=== PATIENT | female | born 1995 | race Caucasian/White ===

== ENCOUNTER → 2016-08-27 | Outpatient (CLI) | payer OTHER ==
[2016-08-27 14:39] LABS: URINE APPEARANCE CLEAR (CLEAR); URINE BILIRUBIN NEG (NEG); URINE COLOR YELLOW; URINE NITRITE NEG (NEG); URINE SPECIFIC GRAVITY 1.012 (1.000-1.030); UROBILINOGEN NEG (NEG)
[2016-08-27 14:50] LABS: MANUAL MICROSCOPIC REQUIRED? NO; REVIEW REQ? NO
[2016-08-29 23:02] LABS: CHLAMYDIA TRACH RNA*** NOT DETECTED (NOT DETECTED); GC (NEIS GONORRHOEAE)RNA** NOT DETECTED (NOT DETECTED)
== END | disposition home or self-care (01) ==
LOC: C.LABSPEC 13:42
PROVIDERS: ATTEND Obstetrics & Gynecology
DX: Z34.00 Encounter for supervision of normal first pregnancy, unspecified trimester (principal)

== ENCOUNTER → 2016-08-27 | Outpatient (CLI) | payer OTHER ==
[2016-08-27 10:15] LABS: BASO % 0.1 %; BASO ABS # 0.01 K/uL (0-0.2); COMPLETE YES; HEMATOCRIT 37.9 % (37-47); IG% 0.3 %; LYMPH % 25.6 %; LYMPH ABS # 1.72 K/uL (1.2-3.4); MEAN CELL VOLUME 78.6 fL (80-100); MEAN CORPUSCULAR HEMOGLOBIN 27.6 pg (25-34); MEAN CORPUSCULAR HGB CONC 35.1 g/dl (32-36); MEAN PLATELET VOLUME 11.6 fL (7.4-10.4); MONO % 6.7 %; NEUT % 66.3 %; PLATELET COUNT 148 K/uL (130-400); RED BLOOD COUNT 4.82 M/uL (4.2-5.4); WHITE BLOOD COUNT 6.72 K/uL (4.8-10.8)
== END | disposition home or self-care (01) ==
LOC: C.LAB1850 09:09
PROVIDERS: ATTEND Obstetrics & Gynecology
DX: Z34.00 Encounter for supervision of normal first pregnancy, unspecified trimester (principal)

== ENCOUNTER → 2016-10-15 | Outpatient (CLI) | payer OTHER ==
[2016-10-15 12:38] LABS: GTGD 50 Grams
[2016-10-17 15:32] LABS: AFP CONCENTRATION 24.9 NG/ML; AFP MULTIPLE OF MEDIAN 0.71; AFPTS GESTATIONAL AGE 16.3 WEEKS; AFPTS INSULIN DEP DIABETIC? NO; AFPTS MATERNAL WT 142 LBS; ALPHA-FETOPROTEIN RACE CAUCASIAN=W; EDD DETERMINED BY ULTRASOUND; HISTORY OF NTD NO; REPEAT SAMPLE? NO
== END | disposition home or self-care (01) ==
LOC: C.LAB1850 09:14
PROVIDERS: ATTEND Obstetrics & Gynecology
DX: Z34.00 Encounter for supervision of normal first pregnancy, unspecified trimester (principal)

== ENCOUNTER → 2017-01-07 | Outpatient (CLI) | payer OTHER ==
[2017-01-07 11:37] LABS: URINE APPEARANCE CLEAR (CLEAR); URINE BILIRUBIN NEG (NEG); URINE COLOR YELLOW; URINE EPITHELIAL CELL AUTO 20-30 /lpf (0-5); URINE NITRITE NEG (NEG); URINE SPECIFIC GRAVITY 1.009 (1.000-1.030); UROBILINOGEN NEG (NEG)
[2017-01-07 11:49] LABS: MANUAL MICROSCOPIC REQUIRED? NO; REVIEW REQ? NO
[2017-01-07 12:07] LABS: HEMATOCRIT 34.2 % (37-47)
[2017-01-07 12:53] LABS: GTGD 50 Grams
== END | disposition home or self-care (01) ==
LOC: C.LAB1850 09:49
PROVIDERS: ATTEND Obstetrics & Gynecology
DX: Z34.03 Encounter for supervision of normal first pregnancy, third trimester (principal)

== ENCOUNTER → 2017-03-04 | Outpatient (CLI) | payer OTHER | END | disposition home or self-care (01) | LOC: C.LABSPEC 15:56 | PROVIDERS: ATTEND Obstetrics & Gynecology | DX: Z34.03 Encounter for supervision of normal first pregnancy, third trimester (principal); Z3A.00 Weeks of gestation of pregnancy not specified ==

== ENCOUNTER 2017-03-12 00:11 | Inpatient (IN) | payer OTHER ==
[~2017-03-12] VITALS: Ht 170.2 cm; Wt 82.0 kg
[2017-03-12] MEDS ORDERED: LACTATED RINGER'S 1000ML 1,000 ML IV PRN (01:33)
[2017-03-12] MEDS ORDERED: LACTATED RINGER'S 1000ML 1,000 ML IV SCH ×2 (01:33→07:24)
[2017-03-12] MEDS ORDERED: FENTANYL CITRATE INJ 50 MCG/1 ML 2 ML VIAL ONE (02:15)
[2017-03-12] MEDS ORDERED: BUPIVACAINE 0.25% 30 ML VIAL ONE (02:15)
[2017-03-12] MEDS ORDERED: FENTANYL 2MCG/ML ROPIV 1.25MG/ML 100ML BAG EPI ONE (02:15)
[2017-03-12] MEDS ORDERED: EpHEDrine SULFATE INJ 50 MG/ML AMP ONE (02:15)
[2017-03-12 02:22] LABS: ALT/SGPT 16 U/L (12-78); AST/SGOT 12 U/L (15-37); BLOOD UREA NITROGEN 9 mg/dl (7-18); BUN/CREATININE RATIO 13.8 (10-20); CALCIUM 8.7 mg/dl (8.5-10.1); CARBON DIOXIDE 22 mmol/L (21-32); CHLORIDE 109 mmol/L (98-107); CREATININE 0.64 mg/dl (0.60-1.20); GLUCOSE 81 mg/dl (70-99); POTASSIUM 3.8 mmol/L (3.5-5.1); SODIUM 140 mmol/L (136-145)
[2017-03-12 02:23] LABS: HEMATOCRIT 35.5 % (37-47); MEAN CELL VOLUME 82.4 fL (80-100); MEAN CORPUSCULAR HEMOGLOBIN 28.1 pg (25-34); MEAN CORPUSCULAR HGB CONC 34.1 g/dl (32-36); PLATELET COUNT 115 K/uL (130-400); PLT ESTIMATE NORMAL; RED BLOOD COUNT 4.31 M/uL (4.2-5.4); WHITE BLOOD COUNT 12.15 K/uL (4.8-10.8)
[2017-03-12 02:25] LABS: ALB/GLOB RATIO 0.8 (0.9-2); ALKALINE PHOSPHATASE 186 U/L (45-117)
[2017-03-12] MEDS ORDERED: LACTATED RINGER'S 1000ML 500 ML IV PRN (03:18)
[2017-03-12] MEDS ORDERED: NALOXONE HCL INJ 1 MG in SODIUM CHLORIDE 0.9% 1000ML 1,000 ML IV PRN (03:18)
[2017-03-12] MEDS ORDERED: EpHEDrine SULFATE INJ 50 MG/ML AMP IV PRN (03:30)
[2017-03-12] MEDS ORDERED: PROMETHAZINE HCL INJ 6.25 MG in SODIUM CHLORIDE 0.9% 50ML 50 ML IV PRN (03:30)
[2017-03-12] MEDS ORDERED: NALBUPHINE HCL INJ 10 MG/ML AMP IV PRN (03:30)
[2017-03-12] MEDS ORDERED: NALOXONE HCL INJ 0.4 MG/1 ML VIAL/CARP IV PRN (03:30)
[2017-03-12] MEDS ORDERED: FENTANYL 2MCG/ML ROPIV 1.25MG/ML 100ML BAG EPI PRN (03:30)
[2017-03-12] MEDS ORDERED: ONDANSETRON INJ 2 MG/ML 2 ML VIAL IV PRN (03:30)
[2017-03-12] MEDS ORDERED: DiphenhydrAMINE HCL 50 MG/ML VIAL IV PRN (03:30)
[2017-03-12 03:54] VITALS: Ht 170.2 cm; Wt 82.0 kg
[2017-03-12] MEDS ORDERED: OXYTOCIN 30 UNITS/500ML NSS IV ONE (06:46)
[2017-03-12] MEDS ORDERED: SUPERCREAM 0.870 % 15GM JAR EXT PRN (07:30)
[2017-03-12] MEDS ORDERED: ACETAMINOPHEN 325 MG TAB PO PRN (07:30)
[2017-03-12] MEDS ORDERED: DIPHTHERIA/TETANUS/PERTUSSIS 0.5 ML SYR/VIAL IM. ONE (07:30)
[2017-03-12] MEDS ORDERED: OXYTOCIN 30 UNITS/500ML NSS IV PRN (07:30)
[2017-03-12] MEDS ORDERED: LANOLIN OINT EXT PRN ×2 (07:30)
[2017-03-12] MEDS ORDERED: HYDROCORTISONE ACETATE 25 MG SUPP PR PRN (07:30)
[2017-03-12] MEDS ORDERED: BENZOCAINE 20% AER SPR 82.5 GM CAN EXT PRN (07:30)
[2017-03-12] MEDS ORDERED: OXYCODONE/ACETAMINOPHEN 5-325 TAB PO PRN (07:30)
--- NOTE | 2017-03-12 07:35 | Anesthesia Procedure Note ---
Anesthesia Epidural Removal Nt Date & Time Mar 12, 2017 at 07:34 Vital Signs Pain Intensity: 1 Notes Mental Status: alert / awake / arousable, participated in evaluation Nausea / Vomiting: adequately controlled Pain: adequately controlled Airway Patency, RR, SpO2: stable & adequate BP & HR: stable & adequate Hydration State: stable & adequate Neuraxial Anesthesia: was administered Anesthetic Complications: no major complications apparent, pt satisfied with anesthetic care Epidural: removed without complications, with tip intact
--- NOTE | 2017-03-12 07:42 | DELIVERY SUMMARY ---
DATE OF OPERATION: 03/12/2017 PREOPERATIVE DIAGNOSES: 1. Murguia intrauterine at 37+ weeks. 2. Onset of labor. 3. Group B strep negative. POSTOPERATIVE DIAGNOSES: Same. PROCEDURE: Spontaneous vaginal delivery. SURGEON: Tianna Bess MD DUKEY RIDER: None. ESTIMATED BLOOD LOSS: 250. COMPLICATIONS: None. DISPOSITION: Stable in labor and delivery. DESCRIPTION OF PROCEDURE: Nellie is a 21-year-old who presented in active labor. She was provided with an epidural for pain management. She reached complete dilation with an urge to push and was coached to her second stage of labor. She pushed well and delivered the head of her in the occiput anterior position with a left nuchal arm, so the posterior shoulder and left arm delivered next and then the infant was slightly rotated and the anterior/right arm then delivered followed by the remainder of the with no difficulty whatsoever. The infant was placed on the maternal abdomen. Cord was doubly clamped and cut by the father of the baby. The was vigorous immediately after delivery. Cord blood was collected and the placenta was delivered and noted to be intact with a 3-vessel cord. The cervix, vagina and perineum were examined and found to be free of any lacerations or abrasions. The patient is currently in stable condition with the firm fundus and she and the are both doing well. I attest to the content of the Intraoperative Record and any orders documented therein. Any exception s are noted below.
[2017-03-12] MEDS: DOCUSATE SODIUM 100 MG CAP PO SCH ×2 (13:35→20:04)
[2017-03-12] MEDS: PRENATAL VITAMIN TAB PO SCH (13:35)
[2017-03-12 13:45] VITALS: BP 144/91; PULSE 86; TEMP 36.7; O2SAT 99
[2017-03-12 15:30] VITALS: BP 134/85; PULSE 90; TEMP 36.8
[2017-03-12] MEDS: IBUPROFEN 600 MG TAB PO PRN ×2 (18:42→23:05)
[2017-03-12 19:00] VITALS: BP 134/80; PULSE 85; TEMP 36.8
[2017-03-12 23:45] VITALS: BP 144/95; PULSE 90; TEMP 36.8
[2017-03-13 03:15] VITALS: BP 122/80; PULSE 87; TEMP 36.8
[2017-03-13 07:28] LABS: HEMATOCRIT 36.1 % (37-47)
--- NOTE | 2017-03-13 07:53 | Progress Note ---
Subjective Mar 13, 2017. Subjective conversation w/ patient Ambulation: ambulating normally Voiding: no voiding problems Passing Gas: Yes (pt thinks so) Diet Tolerance: Regular Diet Lochia: Small Feeding Type: Breast Feeding Pain: Notes some mild low cramping Comment: Found pt initially standing and caring for baby in crib. Denies any acute concerns. Review of Systems Constitutional: No fever, No chills Respiratory: No cough, No shortness of breath Cardiac: No chest pain, No edema Abdomen: No nausea, No vomiting, No diarrhea Female : No dysuria Objective Vital Signs Date Time Temp Pulse Resp B/P (MAP) Pulse Ox O2 Delivery O2 Flow Rate FiO2 03/13/17 03:15 36.8 87 20 122/80 (94) Room Air 03/12/17 23:45 Room Air 03/12/17 23:45 36.8 90 18 144/95 (111) Room Air 03/12/17 19:00 36.8 85 20 134/80 (98) Room Air 03/12/17 15:30 Room Air 03/12/17 15:30 36.8 90 20 134/85 (101) Room Air 03/12/17 13:45 36.7 86 18 144/91 (108) 99 Room Air Physical Exam General Appearance: WELL-APPEARING, WD/WN, NO APPARENT DISTRESS Respiratory/Chest: lungs clear, normal breath sounds, no respiratory distress Cardiovascular: regular rate, rhythm, no edema, no murmur Abdomen: normal bowel sounds, non tender, soft Fundus: Firm, Tender (minimal, appropriate), Relation to Umbilicus (at umbilicus) Extremities: normal range of motion, no pedal edema, no calf tenderness Laboratory Results Last 24 Hours Test 03/13/17 06:35 Hemoglobin 11.9 g/dL Hematocrit 36.1 % Assessment and Plan Post- Day#: 1 Continue Routine Care: 21F s/p , now PPD #1. - Blood type B positive. GBS negative. Rubella immune. - Vital signs reviewed and stable. - Pain controlled with motrin. - No leg swelling or tenderness on calf palpation. Encourage ambulation. - Encourage breast feeding. - Hemoglobin pre-delivery 12.1, post-delivery 11.9. Bleeding has improved. Continue to monitor clinically. - Continue routine post-vaginal delivery care. - Pt agreed with above plan, all current questions answered. Inocencio Méndez MD, PGY1 Experimental Mechanic Spacecraft Physician Supervision Note: I interviewed and examined the patient. Discussed with Dr. Méndez and agree with findings and plan as documented in the note. Any exceptions or clarifications are listed here: Doing well. routine care. Documented By: Mary Tinajero Resident Tracking Resident Involvement: Resident Care Provided Care Provided: OB Delivery (OB rounds)
[2017-03-13 08:20] VITALS: BP 139/86; PULSE 99; TEMP 36.8; O2SAT 99
[2017-03-13] MEDS: PRENATAL VITAMIN TAB PO SCH (08:46)
[2017-03-13] MEDS: IBUPROFEN 600 MG TAB PO PRN ×2 (08:46→15:45)
[2017-03-13] MEDS: DOCUSATE SODIUM 100 MG CAP PO SCH ×2 (08:46→20:18)
[2017-03-13 15:30] VITALS: BP 140/90; PULSE 89; TEMP 36.6
[2017-03-13 23:50] VITALS: BP 125/76; PULSE 80; TEMP 36.7; O2SAT 98
[2017-03-14] MEDS: IBUPROFEN 600 MG TAB PO PRN ×3 (01:40→15:45)
--- NOTE | 2017-03-14 06:42 | Progress Note ---
Subjective Mar 14, 2017. Subjective conversation w/ patient, physical exam Ambulation: ambulating normally Voiding: no voiding problems Diet Tolerance: Regular Diet Lochia: Small Feeding Type: Breast Feeding Comment: c/o of burning externally with urination. no urgency or frequency. using dermaplast spray Review of Systems Constitutional: No fever, No chills, No sweats, No weight loss, No weakness, No fatigue, No problem reported Abdomen: No pain, No nausea, No vomiting, No diarrhea, No constipation, No GI bleeding, No problem reported Female : + see HPI Objective Vital Signs Date Time Temp Pulse Resp B/P (MAP) Pulse Ox O2 Delivery O2 Flow Rate FiO2 03/13/17 23:50 98 Room Air 03/13/17 23:50 36.7 80 20 125/76 (92) 98 Room Air 03/13/17 15:30 Room Air 03/13/17 15:30 36.6 89 20 140/90 (107) Room Air 03/13/17 08:20 36.8 99 16 139/86 (103) 99 Room Air 03/13/17 08:20 Room Air Physical Exam General Appearance: WELL-APPEARING, NO APPARENT DISTRESS Abdomen: non tender, soft Fundus: Firm, Non-Tender, Relation to Umbilicus (2 below U) Assessment and Plan Problem List Medical Problems: (1) Contusion of pelvis Status: Acute (2) Hand, foot and mouth disease Status: Acute (3) Herpes simplex labialis Status: Acute (4) Sore throat Status: Acute (5) Viral pharyngitis Status: Acute Post- Day#: 2 Continue Routine Care: stable progress discharge to home follow up in 6 weeks.
--- NOTE | 2017-03-14 07:00 | Discharge Instructions ---
Discharge Instructions Date of Service Mar 14, 2017. Admission Reason for Admission: LABOR Discharge Discharge Diagnosis / Problem: recovery from normal delivery Discharge Goals Goal(s): Routine recovery after delivery Medications Continue Dispensed Medications: supercream, dermaplast, tucks, lansinoh Activity Recommendations Activity Limitations: per Instructions/Follow-up section . Instructions / Follow-Up Instructions / Follow-Up ACTIVITY RECOMMENDATIONS: * Gradual return to full activity over the next 2-3 weeks. * No lifting - nothing heavier than baby over the next 2-3 weeks. * Do not engage in vigorous exercise, sexual activity or sports until cleared by your physician. * Do not drive or operate any motorized equipment until cleared by your physician. * You may shower/bathe daily. MEDICATIONS: For discomfort or pain, you may use Acetaminophen (Tylenol), Ibuprofen (Advil), or Naproxen (Aleve) following the package directions. For constipation you may use Colace following the package directions. BREAST CARE: If you are not breast feeding: * Wear a supportive bra 24 hours a day for one to two weeks. * Avoid stimulating your breasts and nipples as much as possible during the first few weeks after delivery. * When taking a shower, have the warm water hit your back, not breasts. * When your breasts feel full, apply ice packs. Usually three to four times a day helps ease the discomfort. * Take a mild pain medication (Tylenol / Motrin) when you are uncomfortable. If breast feeding: * Use breast milk to lubricate nipples. Lansinoh cream may be used for sore nipples. You do not need to remove cream prior to breast feeding. If using a different brand of cream, check the label for directions regarding removal of cream prior to nursing. * Wear a supportive bra. * If having problems with breasts or breast feeding, call a executive talent acquisition consultant or your health care provider. EPISIOTOMY CARE: After delivery, if you have an episiotomy (stitches), the following steps will ease discomfort and aid healing. * For the first 24 hours after delivery, place ice packs next to your episiotomy to help reduce swelling. * After the first 24 hour-period, sitz baths, either portable or in the tub, are suggested. A shower with a shower arm sprayed over the episiotomy may be comforting. * [place] care should be done after each voiding and bowel movement. Squirt warm water from a plastic bottle over the perineum (region of the body between the anus and urinary opening) and pat dry. * Use Dermoplast to ease discomfort. Shake container. [place] directly over the episiotomy. Place a Tucks on a clean sanitary pad next to your episiotomy. SPECIAL CARE INSTRUCTIONS: When you are discharged from the hospital, it is important for you to follow the instructions listed below: * During the first week at home, you should be able to care for yourself and your baby. In addition, the usual light household activities are encouraged. * Limit your activities to the way you feel. Do not try to clean the house or move furniture. Be sensible. * If you actively engage in sports and have done so up until the time of your delivery, you may resume these activities as soon as you feel able. This may take up to one month or even longer. Use good judgment. * Continue to take your vitamins for at least six weeks after the of your baby. * Your diet need not be limited unless you were on a special diet before your delivery. Breast-feeding mothers need around 2500 calories per day and at least 64-80 ounces of fluid per day (8 to 10 glasses). * You should eat foods from the four major food groups. Crash diets or fad diets are to be avoided. Eating lean meats, fresh fruits and vegetables, low-fat dairy products, high fiber foods and a regular exercise program, will help you get back to your pre- weight without putting your health at risk. * Constipation is sometimes a problem after delivery. Take a mild laxative as needed. If breast feeding, Milk of Magnesia is acceptable to use. You may use a suppository or Fleets enema if no episiotomy. * A daily shower or tub bath is suggested. Be sure to thoroughly and gently dry the perineum. * A bloody vaginal discharge will usually continue until around four weeks post . A small amount of bleeding may continue for as long as six weeks. Vaginal discharge changes from the bright red bleeding after delivery to pink then brownish and finally yellowish-pink before becoming white and disappearing. * Bleeding may increase with activity. Your first period may come in 4-8 weeks. If you are breast feeding, your period may be delayed even longer. * [place] (sex) can begin whenever both you and your partner feel comfortable and do not have any form of genital infection. It is recommended that you wait at least six weeks for internal and external healing to occur. If you have questions, please talk to your health care practitioner. A condom should be used to prevent infection and . * Foreplay, gentle intercourse and lubrication is very important the first several times to prevent pain. A water-based lubricant such as K-Y jelly or Astroglide may be used. * If you have RH negative blood and your baby is RH positive, you will receive RHOGAM by injection prior to discharge. The nurse will give you a card to keep with you that has the date and place that you received RHOGAM after delivery. * During your care, you had a Rubella screen done to check for the presence of rubella antibodies in your blood. If your test was negative, you will receive a Rubella vaccine prior to discharge. This vaccine may cause a fever, soreness at the injection site and flu-like symptoms. If these symptoms persist, notify your health care practitioner. is not advised for one month after a Rubella vaccine. * Verbalizes understanding of car seat law as reviewed with patient nursing. * Car Seat hand-out given and reviewed with patient by nursing. * Shaken baby information reviewed with patient by nursing. Call you doctor if: * Heavy bleeding (saturating several pads an hour) or passing clots the size of your fist. * A fever >101 degrees F (38.3 degrees C) on two occasions four hours apart and /or chills. * Unusual pain in the pelvic or vaginal areas. * "Baby Blues" lasting longer than two weeks. If you have any questions or concerns, call your health care practitioner at . FOLLOW UP VISIT: * Please call the office at to schedule a 6 week examination. It is important you keep this appointment. It is important for you to make arrangements for either yearly or twice yearly check-ups thereafter. Current Hospital Diet Patient's current hospital diet: Regular OB Diet Discharge Diet Recommended Diet: Regular OB Diet Pending Studies Studies pending at discharge: no Medical Emergencies . Who to Call and When: Medical Emergencies: If at any time you feel your situation is an emergency, please call 911 immediately. . Non-Emergent Contact Non-Emergency issues call your: Change Advisor . . "Provider Documentation" section prepared by Samantha Layton. . VTE Core Measure Inpt VTE Proph given/why not?: Treatment not indicated
[2017-03-14 07:45] VITALS: BP 125/75; PULSE 74; TEMP 36.7; O2SAT 99
[2017-03-14] MEDS: DOCUSATE SODIUM 100 MG CAP PO SCH ×2 (09:31→20:21)
[2017-03-14] MEDS: PRENATAL VITAMIN TAB PO SCH (09:31)
[2017-03-14 16:15] VITALS: BP 147/87; PULSE 98; TEMP 36.7
[2017-03-14 19:48] VITALS: BP_DIAS 87; PULSE 98; TEMP 36.7
== END 2017-03-14 21:30 | disposition home or self-care (01) | DRG 775 ==
LOC: C.LD 00:11 → C.OPB 00:11 → C.LD 01:35 → C.OBG 13:37
PROVIDERS: ADMIT Obstetrics & Gynecology; ATTEND Obstetrics & Gynecology
PROC: 10E0XZZ Delivery of Products of Conception, External Approach (ICD-10-PCS; principal; 2017-03-12)
DX: O80 Encounter for full-term uncomplicated delivery (principal); Z3A.37 37 weeks gestation of pregnancy; Z37.0 Single live birth

== ENCOUNTER → 2017-04-29 | Outpatient (CLI) | payer OTHER | END | disposition home or self-care (01) | LOC: C.LABPVFM 11:47 | PROVIDERS: ATTEND Nurse Practitioner | DX: J02.9 Acute pharyngitis, unspecified (principal) ==

== ENCOUNTER → 2017-04-30 | Outpatient (CLI) | payer OTHER ==
[2017-04-30 12:23] LABS: PREG INTERNAL NEGATIVE QC NEG CLEAR BACKGROUND; PREG INTERNAL POSITIVE QC POS CONTROL LINE
== END | disposition home or self-care (01) ==
LOC: C.LAB1850 10:21
PROVIDERS: ATTEND Obstetrics & Gynecology
DX: N91.2 Amenorrhea, unspecified (principal)

== ENCOUNTER 2019-12-17 14:20 | Inpatient (IN) ==
[2019-12-17 16:29] LABS: Creatinine Clr Calc Pharmacy 157.8 ml/min; Est GFR (African American) 148.9; Est GFR (Non-African American) 128.5
[2019-12-17 16:58] LABS: Creatinine Urine Random 25.9 mg/dl; Total Protein Urine Random < 5.0 mg/dl (0-11.9)
[2019-12-17 17:56] LABS: Eosinophils # (auto) 0.03 K/uL (0-0.5); Eosinophils % (auto) 0.4 %; Giant Platelets 1+; Hematocrit (blood only) 32.2 % (37-47); Hemoglobin 10.8 g/dL (12.0-16.0); Immature Granulocytes # (auto) 0.01 K/uL (0.00-0.02); Immature Granulocytes % (auto) 0.1 %; Lymphocytes # (auto) 1.47 K/uL (1.2-3.4); Lymphocytes % (auto) 18.4 %; Mean Corpuscular Hemoglobin 27.8 pg (25-34); Mean Corpuscular Hgb Conc 33.5 g/dL (32-36); Mean Corpuscular Volume 82.8 fL (80-100); Mean Platelet Volume 13.8 fL (7.4-10.4); Monocytes # (auto) 0.61 K/uL (0.11-0.59); Monocytes % (auto) 7.6 %; Neutrophils # (auto) 5.87 K/uL (1.4-6.5); Neutrophils % (auto) 73.5 %; Platelet Count 115 K/uL (130-400); Platelet Estimate Decreased (Normal); RDW Coefficient of Variation 12.9 % (11.5-14.5); RDW Standard Deviation 38.2 fL (36.4-46.3); Red Blood Count 3.89 M/uL (4.2-5.4); White Blood Count 7.99 K/uL (4.8-10.8)
[2019-12-17] MEDS ORDERED: OXYTOCIN 30 UNITS/500 ML BAG IV PRN ×2 (18:51)
[2019-12-17 20:03] LABS: Hematocrit (blood only) 31.9 % (37-47); Hemoglobin 10.8 g/dL (12.0-16.0); Mean Corpuscular Hemoglobin 27.8 pg (25-34); Mean Corpuscular Hgb Conc 33.9 g/dL (32-36); Mean Platelet Volume 13.9 fL (7.4-10.4); Platelet Count 122 K/uL (130-400); Platelet Estimate Decreased (Normal); RDW Coefficient of Variation 12.9 % (11.5-14.5); RDW Standard Deviation 38.1 fL (36.4-46.3); Red Blood Count 3.89 M/uL (4.2-5.4); White Blood Count 8.68 K/uL (4.8-10.8)
[2019-12-17] MEDS: LACTATED RINGER'S 1,000 ML IV PRN ×2 (20:15→23:01)
--- NOTE | 2019-12-17 21:30 | History & Physical Report ---
Date of Service December 17, 2019 Assessment & Plan (1) Gestational hypertension: IUP at 37 weeks sent to L&D for prolonged monitoring that has met criteria for gestational hypertension diagnosis Since platelets are 115,000 and she is 37 weeks- will proceed with IOL patient is agreeable to this plan COVID testing done on admission. will want epidural analgesia when painful anticipate vaginal Admission and Anticipated Discharge Date Admission Date: December 17, 2019 History of Present Illness Primary Care Provider: NO PCP Patient is a 24 yo at 37 weeks who presents after being seen in the office for prolonged monitoring following variable that occurred during NST. monitoring here is Category 1 , however, BP's were elevated to 150/90 and remained elevated for 4 hours. No PIH symptoms and no proteinuria. PIH labs are normal but platelets are 115,000 down from 167,000 at NOB visit.GBS negative. COVID negative. complicated by IUGR although last growth scan shows EFW now at 21%tile & AC at 10%tile. New FOB with this . Allergies Allergy/AdvReac Type Severity Reaction Status Date / Time No Known Allergies Allergy NONE Verified 12/17/19 12:35 Home Medications Home Medications Medication Instructions Recorded Confirmed Type No Known Home Medications 12/11/19 12/17/19 History Patient History Medical History Back pain (Inactive) Chlamydia HSIL (high grade squamous intraepithelial lesion) on Pap smear of cervix Normal labor and delivery Sciatica URI (upper respiratory infection) Vaginitis Varicella vaccination Surgical History History of dental surgery S/P tonsillectomy Family History Grandmother (Maternal) Diabetes Kidney stones Grandmother (Maternal) Hypertension Grandmother (Paternal) Multiple sclerosis Social History Preferred Language: [place] Communication Ability: Effective Tailercpa Required: No Beliefs That Will Affect Care: None marital status: Single marital status details: fob Aren Browninghman (25) [phone] Current Living Situation: Family Current Living Situation Comment: lives with fob, son current occupation: [employer] Other Information That Helps Us Care for You: No Feels Safe at Home: Yes Safety Concerns: Feels Safe At This Time Smoking Status: Former smoker Second Hand Exposure: No ; Hx Alcohol Use: No Hx Substance Use: No Review of Systems All systems reviewed & are unremarkable except as noted in HPI & below Physical Exam Constitutional: WD/WN, vitals as above Respiratory: normal respiratory effort, lungs clear to auscultation Cardiovascular: RRR, no murmur, no edema Gastrointestinal (Abdomen): normal bowel sounds, soft, nontender, no hepatosplenomegaly Psychiatric: A+Ox3, euthymic affect Genitourinary: OB Exam Abdomen: + vertex and + regular contractions Manual OB Exam: + cervical dilation 3 cm, + cervical effacement 70% and + station -1 OB Exam Monitor Tracing: + external FHT monitor used, + external uterine monitor used, + category I and + normal FHT variability Results & Data ([facility]) Vital Signs (Past 12 Hours) Vital Signs Temp Pulse Resp BP 12/17/19 21:25 68 148/92 H 12/17/19 20:54 96 H 143/90 H 12/17/19 20:23 78 152/90 H 12/17/19 19:36 83 135/91 12/17/19 19:15 98.6 F 90 138/93 12/17/19 18:56 91 H 139/93 12/17/19 18:43 74 144/85 H 12/17/19 18:17 75 144/86 H 12/17/19 17:59 76 137/89 12/17/19 17:37 82 142/88 H 12/17/19 17:17 84 134/84 12/17/19 16:57 79 136/86 12/17/19 16:37 81 141/86 H 12/17/19 16:20 71 155/90 H 12/17/19 16:02 98.6 F 92 H 18 142/92 H 12/17/19 15:56 92 H 142/92 H 12/17/19 15:36 95 H 134/94 12/17/19 15:17 84 148/95 H 12/17/19 14:57 72 134/89 12/17/19 14:35 77 155/91 H Coding Level of Care Code None Diagnoses Gestational hypertension O13.9
[2019-12-17] MEDS ORDERED: BUPIVACAINE 0.25% 30 ML VIAL ONE (22:25)
[2019-12-17] MEDS ORDERED: fentaNYL citrate 100 MCG/2 ML VIAL ONE (22:25)
[2019-12-17] MEDS ORDERED: ePHEDrine sulfate 50 MG/ML AMP ONE (22:25)
[2019-12-17] MEDS ORDERED: fentaNYL 2MCG/ML ROPIV 1.25MG/ML 100 ML BAG EPI ONE (22:26)
[2019-12-17] MEDS ORDERED: fentaNYL 2MCG/ML ROPIV 1.25MG/ML 100 ML BAG EPI PRN (22:32)
[2019-12-17] MEDS ORDERED: NALOXONE HCL 1 MG in SODIUM CHLORIDE 0.9% 1000ML 1,000 ML IV PRN (22:32)
[2019-12-17] MEDS ORDERED: ePHEDrine sulfate 50 MG/ML AMP IV PRN (22:32)
[2019-12-17] MEDS ORDERED: DiphenhydrAMINE HCL 50 MG/ML VIAL IV PRN (22:32)
[2019-12-17] MEDS ORDERED: NALOXONE HCL 0.4 MG/1 ML VIAL/CARP IV PRN (22:32)
[2019-12-17] MEDS ORDERED: ONDANSETRON INJ 2 MG/ML 2 ML VIAL IV PRN (22:32)
--- NOTE | 2019-12-17 22:32 | Anesthesiology Consultation ---
Date of Service December 17, 2019 Assessment & Plan (1) Encounter for pre-operative examination: Chart Review Chart Review: Patient NOT seen in Pre Admission Testing and Acceptable Risk for Labor Epidural Consults Requested none ASA ASA2 Proposed Anesthesia Anesthesia Type: Labor Epidural Risk / Benefits Reviewed With: PT / POA / Parent / Guardian, Accepts Plan and Informed Consent Obtained History Height/Weight Height: 5 ft 7 in Weight: 78.925 kg Allergies Allergy/AdvReac Type Severity Reaction Status Date / Time No Known Allergies Allergy NONE Verified 12/17/19 12:35 Medications Home Medications Medication Instructions Recorded Confirmed Last Taken No Known Home Medications 12/11/19 12/17/19 Unknown Active Medications Generic Name Dose Route Start Last Admin Trade Name Freq PRN Reason Stop Dose Admin Lactated Ringer's 1,000 mls @ 125 mls/hr 12/17/19 18:51 12/17/19 20:15 Lr IV 12/19/19 18:50 125 mls/hr .Q8H PRN Administration L&D Protocol Protocol Oxytocin 30 units in 500 mls @ 7 mls/hr 12/17/19 18:51 12/17/19 22:15 Pitocin IV 12/19/19 18:50 0.42 units/hr .Q24H PRN 7 mls/hr Labor Induction/Augmentation Titration Protocol 0.42 UNITS/HR NPO Date Last Intake of Fluids: 12/17/19 Time Last Intake of Fluids: 06:00 Date Last Intake of Solids: 12/17/19 Time Last Intake of Solids: 06:00 Past Medical History Medical History Back pain (Inactive) Chlamydia HSIL (high grade squamous intraepithelial lesion) on Pap smear of cervix Normal labor and delivery Sciatica URI (upper respiratory infection) Vaginitis Varicella vaccination Exercise / Class Metabolic Activity II 4-5 Yardwork/Stairs/Walk up hill Past Family History Family History Grandmother (Maternal) Diabetes Kidney stones Grandmother (Maternal) Hypertension Grandmother (Paternal) Multiple sclerosis Past Surgical History Surgical History History of dental surgery S/P tonsillectomy Past Anesthesia History No Hx of Anesthesia Complications and No Family Hx of Anesthesia Complications History of PONV No Hx of PONV and No Hx of Motion Sickness Social History Smoking Status: Former smoker Hx Alcohol Use: No Hx Substance Use: No Physical Exam Vital Signs Last Vital Signs Temp 37.0 C 12/17/19 19:15 Pulse 83 12/17/19 22:26 Resp 18 12/17/19 16:02 BP 128/78 12/17/19 22:24 Pulse Ox 100 12/17/19 22:26 ENMT Mouth: no dentition abnormality Thyromental Distance: > or= 3.5 Finger Breadths Mallampati Class: II Neck normal visual inspection Respiratory normal respiratory effort Auscultation: lungs clear to auscultation bilaterally Cardiovascular Rate/Rhythm: regular rate and regular rhythm Psychiatric Orientation: alert Testing Laboratory Results 12/17/19 19:05 12/17/19 16:01
[2019-12-18] MEDS ORDERED: HYDROCORTISONE ACETATE 25 MG SUPP PR PRN (02:59)
[2019-12-18] MEDS ORDERED: DIPHTHERIA/TETANUS/PERTUSSIS 0.5 ML SYR/VIAL IM ONE (02:59)
[2019-12-18] MEDS ORDERED: BENZOCAINE 20% AER SPR 82.5 GM CAN EXT PRN (02:59)
[2019-12-18] MEDS ORDERED: bisacodyL 10 MG SUPP PR PRN (02:59)
[2019-12-18] MEDS ORDERED: SUPERCREAM 0.870% 15 GM JAR EXT PRN (02:59)
[2019-12-18] MEDS ORDERED: OXYTOCIN 30 UNITS/500 ML BAG IV PRN (02:59)
[2019-12-18] MEDS ORDERED: OXYCODONE/ACETAMINOPHEN 5mg/325mg TAB PO PRN (02:59)
--- NOTE | 2019-12-18 06:04 | Delivery Summary ---
DATE OF OPERATION: 12/18/2019 The patient is a 3, para 1-0-0-1 white female, EDC of 01/07/2019 who had presented to the office for her usual visit. Her had been complicated by IUGR, however, the most recent ultrasound showed estimated weight at 21st percentile. She had 2 variable decels and was sent to labor and delivery for further evaluation. heart tones here were category 1; however, her blood pressures were elevated and after 4 hours met criteria for the gestational hypertension diagnosis. She was admitted and Pitocin was begun. She had membranes ruptured for clear fluid. She received effective epidural analgesia and moved quickly to full dilation and pushing. She delivered a viable female infant over intact perineum. There was a tight nuchal cord which was clamped and cut prior to delivering the rest of the . The infant was then placed on the mother's abdomen for further attention and drying. There was vigorous crying and the infant was moving all 4 limbs. The placenta was expressed intact with a 3-vessel cord. There was only very superficial abrasions present on the perineum and nothing that needed to be repaired. Estimated blood loss was 200 mL. Mother and were doing well after delivery. I attest to the content of the Intraoperative Record and any orders documented therein. Any exception s are noted below.
[2019-12-18 06:45] LABS: Hematocrit (blood only) 31.9 % (37-47); Hemoglobin 10.6 g/dL (12.0-16.0); Mean Corpuscular Hemoglobin 27.4 pg (25-34); Mean Corpuscular Hgb Conc 33.2 g/dL (32-36); Mean Corpuscular Volume 82.4 fL (80-100); Mean Platelet Volume 13.3 fL (7.4-10.4); Platelet Count 108 K/uL (130-400); RDW Coefficient of Variation 12.7 % (11.5-14.5); RDW Standard Deviation 37.8 fL (36.4-46.3); Red Blood Count 3.87 M/uL (4.2-5.4); White Blood Count 9.68 K/uL (4.8-10.8)
[2019-12-18 06:46] LABS: Platelet Estimate Decreased (Normal)
[2019-12-18] MEDS: PRENATAL VITAMIN 1 TAB PO SCH (07:17)
[2019-12-18] MEDS: ACETAMINOPHEN 325 MG TAB PO PRN ×2 (07:17→13:45)
[2019-12-18] MEDS: DOCUSATE SODIUM 100 MG CAP PO SCH ×2 (07:17→21:04)
--- NOTE | 2019-12-18 07:27 | Anesthesia Procedure Note ---
Date of Service December 18, 2019 Anesthesia Post Epidural Note Vital Signs Vital Signs: Temp Pulse Resp BP Pulse Ox 36.5 C 77 18 130/82 99 12/18/19 02:49 12/18/19 04:47 12/18/19 04:47 12/18/19 04:47 12/18/19 02:46 Notes Mental Status: alert / awake / arousable and participated in evaluation Nausea / Vomiting: adequately controlled Pain: adequately controlled Airway Patency, RR, SpO2: stable & adequate BP & HR: stable & adequate Hydration State: stable & adequate Neuraxial Anesthesia: was administered and sensory block is resolving Anesthetic Complications: no major complications apparent and Pt Satisfied with anesthetic care Epidural: Removed without complications and With tip intact
[2019-12-18] MEDS: IBUPROFEN 600 MG TAB PO PRN ×3 (11:38→21:04)
[2019-12-19] MEDS: IBUPROFEN 600 MG TAB PO PRN ×3 (04:20→23:57)
--- NOTE | 2019-12-19 06:40 | Obstetrical Progress Note ---
Date of Service <Chuy Chin MD - Last Filed: 12/19/19 06:51> December 19, 2019 Assessment & Plan <Chuy Chin MD - Last Filed: 12/19/19 06:51> (1) : - Feels well today. Eating well, voiding well, ambulating well. - Pain well controlled with analgesics. - Routine care - After discharge will have 6 week followup. Subjective <Chuy Chin MD - Last Filed: 12/19/19 06:51> Nellie is a 24 y/o female ; PPD #1 following spontaneous vaginal delivery at 37 weeks; doing well this morning; light abdominal cramping & 3/10 pain well managed on analgesics; voiding well; tolerating meals overnight and able to ambulate some; some persistent spotting with some improvement this morning. Review of Systems Constitutional: denies fever, chills, sweat, headache Respiratory: denies shortness of breath, difficulty breathing Cardiac: denies chest pain, palpitations, chest pressure Breast: denies breast pain : denies dysuria Physical Exam <Chuy Chin MD - Last Filed: 12/19/19 06:51> General: Alert, oriented. No acute distress. Cardiac: Regular rate and rhythm, no murmurs/rubs/gallops. Respiratory: Clear to auscultation bilaterally a/p, no wheezes/rales/rhonchi. No increased work of breathing. Symmetrical chest rise. No respiratory distress. Abdomen: Soft, nontender, nondistended. Bowel sounds present. Uterus: Uterine fundus firm, palpable 1cm below umbilicus. Lower Extremities: No lower extremity edema or swelling. No deep calf pain. Vivek's negative bilaterally. Results & Data <Chuy Chin MD - Last Filed: 12/19/19 06:51> Vital Signs (Past 12 Hours) Vital Signs Temp Pulse Resp BP 12/19/19 04:15 36.5 C 75 20 147/97 H 12/18/19 23:45 36.8 C 80 17 128/73 12/18/19 20:50 36.6 C 65 18 146/89 H <Sameera Ling DO - Last Filed: 12/19/19 08:05> Co-Signing Physician Notes Resident Physician Supervision Note: I was present with Dr. Marie during the history and exam. I discussed the case with the resident and agree with the findings and plan as documented in the note. Any exceptions or clarifications are listed here: PPD#1 doing well. Continue routine care. Documented By: Sameera Ling DO Resident Activity Tracking <Chuy Chin MD - Last Filed: 12/19/19 06:51> Resident Involvement: Resident Care Provided Care Provided: OB Delivery
[2019-12-19] MEDS: DOCUSATE SODIUM 100 MG CAP PO SCH ×2 (08:25→21:02)
[2019-12-19] MEDS: PRENATAL VITAMIN 1 TAB PO SCH (08:25)
[2019-12-19 08:27] LABS: Eosinophils # (auto) 0.06 K/uL (0-0.5); Hematocrit (blood only) 32.5 % (37-47); Hemoglobin 10.8 g/dL (12.0-16.0); Immature Granulocytes # (auto) 0.02 K/uL (0.00-0.02); Immature Granulocytes % (auto) 0.3 %; Lymphocytes # (auto) 1.27 K/uL (1.2-3.4); Lymphocytes % (auto) 21.9 %; Mean Corpuscular Hemoglobin 27.8 pg (25-34); Mean Corpuscular Hgb Conc 33.2 g/dL (32-36); Mean Corpuscular Volume 83.8 fL (80-100); Monocytes # (auto) 0.34 K/uL (0.11-0.59); Monocytes % (auto) 5.9 %; Neutrophils % (auto) 70.9 %; Platelet Count 114 K/uL (130-400); RDW Coefficient of Variation 13.1 % (11.5-14.5); RDW Standard Deviation 39.2 fL (36.4-46.3); Red Blood Count 3.88 M/uL (4.2-5.4); White Blood Count 5.79 K/uL (4.8-10.8)
[2019-12-19] MEDS ORDERED: bisacodyL 5 MG TABEC PO SCH (20:00)
[2019-12-20] MEDS: DOCUSATE SODIUM 100 MG CAP PO SCH (08:28)
[2019-12-20] MEDS: PRENATAL VITAMIN 1 TAB PO SCH (08:28)
--- NOTE | 2019-12-20 09:04 | Obstetrical Progress Note ---
Date of Service December 20, 2019 Assessment & Plan (1) examination following vaginal delivery: (2) Gestational hypertension: stable, d/c home, f/u one wk bp check and 6wk pp check. denies complaints, bps labile. instructions reviewed. needs breast pump script will try to print Day #:: 2 Subjective Ambulation: ambulating normally Voiding: no voiding problems Diet Tolerance:: regular diet Lochia:: Small Feeding Type:: breast feeding doing well, bottle feeding too. needs breast pump script. no sx of mike or visual change. Physical Exam Constitutional WD/WN, vitals as above (bps labile) Respiratory normal respiratory effort, lungs clear to auscultation Cardiovascular Rate/Rhythm: regular rate and regular rhythm Gastrointestinal (Abdomen) Inspection/Auscultation: abdomen normal to inspection Percussion/Palpation: abdomen soft fundus firm 2 cm below umbilicus Musculoskeletal nt calves/no edema Neurologic grossly normal Psychiatric A+Ox3, euthymic affect Results & Data ([facility]) Vital Signs (Past 12 Hours) Vital Signs Temp Pulse Resp BP 12/19/19 23:50 97.9 F 79 16 137/88
== END 2019-12-20 12:55 | disposition home or self-care (01) | DRG 807 ==
LOC: OPB 14:20 → 4S1 14:20 → 4S2 12-18 06:45
DX: Z37.0 Single live birth; O13.9 Gestational [pregnancy-induced] hypertension without significant proteinuria, unspecified trimester; O36.5930 Maternal care for other known or suspected poor fetal growth, third trimester, not applicable or unspecified; Z3A.38 38 weeks gestation of pregnancy

== ENCOUNTER 2021-03-21 22:47 | Observation (INO) ==
[2021-03-22] MEDS ORDERED: SODIUM CHLORIDE 0.9% 1000ML 1,000 ML IV SCH ×2 (00:15→02:15)
--- NOTE | 2021-03-22 00:15 | Emergency Department Note ---
History of Present Illness General Chief complaint: Illness Stated complaint: LETHARGIC, CHILLS Time Seen by Provider: 03/21/21 23:43 History of Present Illness Maximum Pain Intensity: 6 This is an otherwise healthy 25-year-old female that presents to the emergency department via private vehicle with complaints of "lethargic, chills". 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 They do all have an illness at this time. Today she developed chills, body aches and overall feels very fatigued and tired. She rates the discomfort of the body aches at this present time is a 6/10. She denies any fevers. She denies any chest pain or shortness of breath. Home Medications Medication Instructions Recorded Confirmed Type No Known Home Medications 03/22/21 03/22/21 History Allergies Allergy/AdvReac Type Severity Reaction Status Date / Time No Known Allergies Allergy NONE Verified 03/08/21 14:05 Past Med/Surg History Medical History Back pain Chlamydia Gestational hypertension HSIL (high grade squamous intraepithelial lesion) on Pap smear of cervix Normal labor and delivery examination following vaginal delivery Sciatica URI (upper respiratory infection) Vaginitis Varicella vaccination Surgical History History of dental surgery S/P tonsillectomy Family History Grandmother (Maternal) Diabetes Kidney stones Grandmother (Maternal) Hypertension Grandmother (Paternal) Multiple sclerosis Denies family history of Ovarian cancer Prostate cancer Myocardial infarction Breast cancer Colorectal cancer Social History Smoking Status: Former smoker Second Hand Exposure: Yes; Do You Dip or Chew Tobacco: No; Tobacco Cessation Education Requested by Patient: No Hx Alcohol Use: Yes Alcohol type: wine and hard liquor Hx Substance Use: No Preferred Language: Portuguese Communication Ability: Effective 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 Beliefs That Will Affect Care: None marital status: Single marital status details: dimitri Read ([phone] Current Living Situation: Spouse and Family Current Living Situation Comment: lives with dimitri, son current occupation: [employer] Other Information That Helps Us Care for You: No Feels Safe at Home: Yes Safety Concerns: Feels Safe At This Time Assistive Devices: None Review of Systems A total of 10 systems reviewed and were otherwise negative Physical Exam Vital Signs Vital Signs - 24 hr 03/21/21 22:51 03/22/21 00:43 03/22/21 00:45 Temperature 36.6 C Temperature Source Temporal Artery Scan Pulse Rate 140 H 135 H 130 H Pulse Rate from SpO2 Sensor 133 H Respiratory Rate 20 16 20 Respiratory Effort / Characteristics Non-Labored Spontaneous Respiratory Depth Normal Blood Pressure 147/82 H Blood Pressure Mean 103 Blood Pressure Position Sitting Pulse Oximetry 97 100 100 Oxygen Delivery Method Room Air Room Air Sepsis Recent Fever Within 48 Hours No Sepsis New/Unexplained Change in Mental Status N/A Sepsis Action Taken by Nursing No Action Required 03/22/21 01:00 03/22/21 02:00 03/22/21 03:00 Temperature Temperature Source Pulse Rate 135 H 146 H 141 H Pulse Rate from SpO2 Sensor 133 H 143 H Respiratory Rate 15 21 20 Respiratory Effort / Characteristics Respiratory Depth Blood Pressure 136/91 129/77 Blood Pressure Mean 106 94 Blood Pressure Position Pulse Oximetry 96 99 Oxygen Delivery Method Sepsis Recent Fever Within 48 Hours Sepsis New/Unexplained Change in Mental Status Sepsis Action Taken by Nursing 03/22/21 04:00 03/22/21 05:00 03/22/21 06:00 Temperature Temperature Source Pulse Rate 127 H 117 H 116 H Pulse Rate from SpO2 Sensor Respiratory Rate 22 16 15 Respiratory Effort / Characteristics Respiratory Depth Blood Pressure 119/66 Blood Pressure Mean 83 Blood Pressure Position Pulse Oximetry Oxygen Delivery Method Sepsis Recent Fever Within 48 Hours Sepsis New/Unexplained Change in Mental Status Sepsis Action Taken by Nursing VITAL SIGNS - Vital signs and nursing notes were reviewed. Tachycardic and a febrile. GENERAL -25-year-old female appearing her stated age who is in no acute distress. Communicates well with provider and answers questions appropriately. SKIN - Without rashes. No meningeal or petechial rash. HEAD - NC/AT. EYES - PERRL with EOMI bilaterally. Sclera anicteric. Palpebral conjunctiva pink and moist with no injection noted. EARS - No deformities of external structures noted on gross examination bilaterally. No pain elicited with palpation of the tragus bilaterally. External auditory canals without discharge or otorrhea. Tympanic membranes pearly evans without retraction or bulging. No fluid or purulent material visualized behind the TM. Handle of malleus, umbo, cone of light, pars tensa/flaccid all easily visualized. NOSE - Midline and without cyanosis. No epistaxis or purulent drainage noted. Septum midline without deviation or septal hematoma noted. MOUTH/OROPHARYNX - Without perioral cyanosis. Buccal mucosa pink and moist and without leukoplakia. Tongue midline with equal elevation of palate bilaterally. No tonsillar hypertrophy, erythema, or exudates noted. Good dentition noted. NECK - Neck with FROM. Supple to palpation. No lymphadenopathy noted. No nuchal rigidity. LUNGS - Chest wall symmetric without accessory muscle use, intercostals retractions, or central cyanosis. Normal vesicular breath sounds CTA B/L. No wheezes, rales, or rhonchi appreciated. CARDIAC -tachycardic at a regular rate without murmur. EXTREMITIES - No clubbing or peripheral cyanosis. +5/5 strength noted in UE/LE bilaterally. NEUROLOGIC - Cranial nerves II through XII grossly intact. PSYCH - A&O, and cooperates fully with examiner. Pt is very pleasant and interacts well with examiner. Course Administered Medications Acetaminophen (Acetaminophen 325 Mg Tab) 650 mg PO Q4H PRN PRN Reason: pain/fever Stop: 04/21/21 06:29 Last Admin: 03/22/21 16:00 Dose: 650 mg Documented by: [id number] Enoxaparin Sodium (Enoxaparin Inj 40 Mg/0.4 Ml Syr) 40 mg SQ Q24H GITA Stop: 04/21/21 06:29 Last Admin: 03/22/21 07:53 Dose: 40 mg Documented by: [id number] Lactated Ringer's (Lr) 1,000 mls @ 125 mls/hr IV .Q8H GITA Stop: 03/22/21 22:29 Last Admin: 03/22/21 17:03 Dose: 125 mls/hr Documented by: [id number] Infusion: 03/22/21 15:53 Dose: 125 mls/hr Documented by: [id number] Admin: 03/22/21 07:53 Dose: 125 mls/hr Documented by: [id number] Discontinued Medications Acetaminophen (Acetaminophen 325 Mg Tab) 650 mg PO NOW STA Stop: 03/22/21 02:53 Last Admin: 03/22/21 03:00 Dose: 650 mg Documented by: [id number] Sodium Chloride (Nss 1000ml) 1,000 mls @ 999 mls/hr IV .Q1H1M GITA Stop: 03/22/21 01:15 Last Infusion: 03/22/21 01:51 Dose: 0 mls/hr Documented by: [id number] Admin: 03/22/21 00:34 Dose: 999 mls/hr Documented by: [id number] Sodium Chloride (Nss 1000ml) 1,000 mls @ 999 mls/hr IV .Q1H1M GITA Stop: 03/22/21 03:15 Last Infusion: 03/22/21 04:03 Dose: 0 mls/hr Documented by: [id number] Admin: 03/22/21 02:51 Dose: 999 mls/hr Documented by: [id number] Lactated Ringer's (Lr) 500 mls @ 999 mls/hr IV .Q31M ONE Stop: 03/22/21 09:18 Last Infusion: 03/22/21 10:26 Dose: 0 mls/hr Documented by: [id number] Admin: 03/22/21 09:47 Dose: 999 mls/hr Documented by: [id number] Ioversol (Optiray 320 125ml) 125 ml IV ONCE ONE Stop: 03/22/21 04:32 Last Admin: 03/22/21 04:31 Dose: 88 ml Documented by: [id number] Ketorolac Tromethamine (Ketorolac Tromethamine 15 Mg/Ml Vial) 15 mg IV NOW STA Stop: 03/22/21 02:53 Last Admin: 03/22/21 03:01 Dose: 15 mg Documented by: [id number] Medical Decision Making Laboratory Data Result diagrams: 03/22/21 00:15 03/22/21 00:15 Lab Results 03/22/21 03/22/21 03/22/21 Range/Units 00:15 00:15 00:15 WBC 5.21 (4.8-10.8) K/uL RBC 4.75 (4.2-5.4) M/uL Hgb 13.0 (12.0-16.0) g/dL Hct 38.4 (37-47) % MCV 80.8 (80-100) fL MCH 27.4 (25-34) pg MCHC 33.9 (32-36) g/dL RDW Std Deviation 35.7 L (36.4-46.3) fL RDW Coeff of Selina 12.3 (11.5-14.5) % Plt Count 136 (130-400) K/uL MPV 11.4 H (7.4-10.4) fL Immature Gran % (Auto) 0.0 % Neut % (Auto) 86.1 % Lymph % (Auto) 7.5 % [place] % (Auto) 5.6 % Eos % (Auto) 0.6 % Baso % (Auto) 0.2 % Neut # (Auto) 4.49 (1.4-6.5) K/uL Lymph # (Auto) 0.39 L (1.2-3.4) K/uL [place] # (Auto) 0.29 (0.11-0.59) K/uL Eos # (Auto) 0.03 (0-0.5) K/uL Baso # (Auto) 0.01 (0-0.2) K/uL Immature Gran # (Auto) 0.00 (0.00-0.02) K/uL Sodium 139 (136-145) mmol/L Potassium 3.6 (3.5-5.1) mmol/L Chloride 108 H (98-107) mmol/L Carbon Dioxide 27 (21-32) mmol/L Anion Gap 4.0 (3-11) BUN 7 (7-18) mg/dl Creatinine 0.84 (0.6-1.2) mg/dl Est Cr Clr Drug Dosing 100.4 ml/min Est GFR ( Amer) 112.7 ml/min Est GFR (Non-Af Amer) 97.3 ml/min BUN/Creatinine Ratio 8.8 L (10-20) Glucose 94 (70-99) mg/dl Calcium 9.0 (8.5-10.1) mg/dl Magnesium (1.8-2.4) mg/dl Total Bilirubin 0.3 (0.2-1) mg/dl AST 5 L (15-37) U/L ALT 15 (12-78) U/L Alkaline Phosphatase 58 (45-117) U/L Troponin I < 0.015 (0-0.045) ng/ml Total Protein 8.0 (6.4-8.2) gm/dl Albumin 4.0 (3.4-5.0) gm/dl Globulin 4.0 (2.5-4.0) gm/dl Albumin/Globulin Ratio 1.0 (0.9-2) TSH 1.330 (0.300-4.500) uIu/ml HCG, Qual Negative (Negative) Urine Color Urine Appearance (Clear) Urine pH (4.5-7.5) Ur Specific Milner (1.000-1.030) Urine Protein (Negative) Urine Glucose (UA) (Negative) Urine Ketones (Negative) Urine Blood (Negative) Urine Nitrite (Negative) Urine Bilirubin (Negative) Urine Urobilinogen (Negative) Ur Leukocyte Esterase (Negative) Urine WBC (Auto) (0-5) /hpf Urine RBC (Auto) (0-4) /hpf U Hyaline Cast (Auto) (0-5) /lpf U Epithel Cells (Auto) (0-5) /lpf Urine Bacteria (Auto) (Negative) COVID-19 Eval Order SARS-CoV-2 (PCR) (Negative) 03/22/21 03/22/21 03/22/21 Range/Units 00:15 00:15 00:52 WBC (4.8-10.8) K/uL RBC (4.2-5.4) M/uL Hgb (12.0-16.0) g/dL Hct (37-47) % MCV (80-100) fL MCH (25-34) pg MCHC (32-36) g/dL RDW Std Deviation (36.4-46.3) fL RDW Coeff of Selina (11.5-14.5) % Plt Count (130-400) K/uL MPV (7.4-10.4) fL Immature Gran % (Auto) % Neut % (Auto) % Lymph % (Auto) % [place] % (Auto) % Eos % (Auto) % Baso % (Auto) % Neut # (Auto) (1.4-6.5) K/uL Lymph # (Auto) (1.2-3.4) K/uL [place] # (Auto) (0.11-0.59) K/uL Eos # (Auto) (0-0.5) K/uL Baso # (Auto) (0-0.2) K/uL Immature Gran # (Auto) (0.00-0.02) K/uL Sodium (136-145) mmol/L Potassium (3.5-5.1) mmol/L Chloride (98-107) mmol/L Carbon Dioxide (21-32) mmol/L Anion Gap (3-11) BUN (7-18) mg/dl Creatinine (0.6-1.2) mg/dl Est Cr Clr Drug Dosing ml/min Est GFR ( Amer) ml/min Est GFR (Non-Af Amer) ml/min BUN/Creatinine Ratio (10-20) Glucose (70-99) mg/dl Calcium (8.5-10.1) mg/dl Magnesium 1.9 (1.8-2.4) mg/dl Total Bilirubin (0.2-1) mg/dl AST (15-37) U/L ALT (12-78) U/L Alkaline Phosphatase (45-117) U/L Troponin I (0-0.045) ng/ml Total Protein (6.4-8.2) gm/dl Albumin (3.4-5.0) gm/dl Globulin (2.5-4.0) gm/dl Albumin/Globulin Ratio (0.9-2) TSH (0.300-4.500) uIu/ml HCG, Qual (Negative) Urine Color Yellow Urine Appearance Clear (Clear) Urine pH 7.5 (4.5-7.5) Ur Specific Milner 1.014 (1.000-1.030) Urine Protein Negative (Negative) Urine Glucose (UA) Negative (Negative) Urine Ketones Negative (Negative) Urine Blood 1+ H (Negative) Urine Nitrite Negative (Negative) Urine Bilirubin Negative (Negative) Urine Urobilinogen Negative (Negative) Ur Leukocyte Esterase Negative (Negative) Urine WBC (Auto) 1-5 (0-5) /hpf Urine RBC (Auto) 0-4 (0-4) /hpf U Hyaline Cast (Auto) 1-5 (0-5) /lpf U Epithel Cells (Auto) 10-20 H (0-5) /lpf Urine Bacteria (Auto) Negative (Negative) COVID-19 Eval Order Covid19 at [facility] SARS-CoV-2 (PCR) (Negative) 03/22/21 Range/Units 00:52 WBC (4.8-10.8) K/uL RBC (4.2-5.4) M/uL Hgb (12.0-16.0) g/dL Hct (37-47) % MCV (80-100) fL MCH (25-34) pg MCHC (32-36) g/dL RDW Std Deviation (36.4-46.3) fL RDW Coeff of Selina (11.5-14.5) % Plt Count (130-400) K/uL MPV (7.4-10.4) fL Immature Gran % (Auto) % Neut % (Auto) % Lymph % (Auto) % [place] % (Auto) % Eos % (Auto) % Baso % (Auto) % Neut # (Auto) (1.4-6.5) K/uL Lymph # (Auto) (1.2-3.4) K/uL [place] # (Auto) (0.11-0.59) K/uL Eos # (Auto) (0-0.5) K/uL Baso # (Auto) (0-0.2) K/uL Immature Gran # (Auto) (0.00-0.02) K/uL Sodium (136-145) mmol/L Potassium (3.5-5.1) mmol/L Chloride (98-107) mmol/L Carbon Dioxide (21-32) mmol/L Anion Gap (3-11) BUN (7-18) mg/dl Creatinine (0.6-1.2) mg/dl Est Cr Clr Drug Dosing ml/min Est GFR ( Amer) ml/min Est GFR (Non-Af Amer) ml/min BUN/Creatinine Ratio (10-20) Glucose (70-99) mg/dl Calcium (8.5-10.1) mg/dl Magnesium (1.8-2.4) mg/dl Total Bilirubin (0.2-1) mg/dl AST (15-37) U/L ALT (12-78) U/L Alkaline Phosphatase (45-117) U/L Troponin I (0-0.045) ng/ml Total Protein (6.4-8.2) gm/dl Albumin (3.4-5.0) gm/dl Globulin (2.5-4.0) gm/dl Albumin/Globulin Ratio (0.9-2) TSH (0.300-4.500) uIu/ml HCG, Qual (Negative) Urine Color Urine Appearance (Clear) Urine pH (4.5-7.5) Ur Specific Milner (1.000-1.030) Urine Protein (Negative) Urine Glucose (UA) (Negative) Urine Ketones (Negative) Urine Blood (Negative) Urine Nitrite (Negative) Urine Bilirubin (Negative) Urine Urobilinogen (Negative) Ur Leukocyte Esterase (Negative) Urine WBC (Auto) (0-5) /hpf Urine RBC (Auto) (0-4) /hpf U Hyaline Cast (Auto) (0-5) /lpf U Epithel Cells (Auto) (0-5) /lpf Urine Bacteria (Auto) (Negative) COVID-19 Eval Order SARS-CoV-2 (PCR) POSITIVE A* (Negative) Imaging Data Radiologist's Impression: Chest CTA 03/22/21 04:06 CHEST CTA for PULMONARY ARTERIES CT DOSE: 227.84 mGy.cm HISTORY: tachycardia, covid 19 TECHNIQUE: Multiaxial CT images of the chest were performed following the intravenous administration of contrast to evaluate the pulmonary arteries. Maximal intensity projection images were also obtained. A dose lowering technique was utilized adhering to the principles of ALARA. COMPARISON STUDY: None. FINDINGS: The spleen is likely mildly enlarged. This is only partially imaged on this study. The visualized liver and adrenal glands are unremarkable. The heart is normal in size. No pleural or pericardial effusions. No evidence for an aortic dissection or pulmonary embolus. No mediastinal or hilar lymphadenopathy. Normal esophagus. No fractures within the visualized osseous structures. No focal lung consolidations to suggest pneumonia. IMPRESSION: 1. No evidence for pulmonary embolus. 2. No focal lung consolidations to suggest pneumonia. 3. The spleen is only partially imaged on this study but appears mildly enlarged. ACT 112: Negative or not required by law. Electronically signed by: Tyrel Morse M.D. 03/22/2021 7:32 AM MDM Narrative Patient was seen and evaluated as above in room A4. Review was performed of nursing notes and vital signs. I did review pertinent previous visits and patient history. After obtaining a thorough history and physical examination the above work up was performed. Patient presents to us today with generalized body aches, chills, fatigue. She cares for 6 children at home of which have similar symptoms. She is nontoxic on examination. Patient is quite tachycardic however on arrival. No chest pain or shortness of breath. Options of care were discussed with the patient. IV access was established. Labs were drawn. She was hydrated with a total of 2 L of normal saline with persistence of tachycardia into the 120s. Labs reveal no leukocytosis or concerning anemia. No emergent metabolic disturbance. Troponin negative. TSH reveals euthyroid state. hCG negative. Urinalysis negative for infection. Covid testing positive. Patient then sent for CT of the chest noting her per sistence of tachycardia in the setting of COVID-19 diagnosis to rule out PE or other emergent intrathoracic process. CTA of the chest negative for PE. No evidence of pneumonia. Spleen perhaps mildly enlarged. With the patient having persistence of tachycardia despite fluids and her body aches were treated with acetaminophen as well as IV Toradol with still persistence of tachycardia it is felt that further evaluation and management in the inpatient setting is warranted. Patient amenable to plan of care. Case discussed with the attending physician as well as the hospitalist. Please refer to further documentation regarding her stay. An order was placed for continuous cardiac monitoring. The monitor shows a rate of 128 with sinus tach rhythm. GCS: 15 In the evaluation and treatment of this patient the following differential diagnoses were entertained: Viral illness, dehydration, electrolyte disturbance, COVID-19, anemia, among others. Impression & Plan COVID-19, Tachycardia Discharge Plan Visit Data Chief Complaint: Illness Stated Complaint: LETHARGIC, CHILLS ED Provider: Nataliia Estes ED Midlevel Provider: Jamal Calix Discharge Problem: COVID-19, Tachycardia Patient Disposition: Admitted As Inpatient Condition: Good Discharge Instructions Interventions: ED Discharge Assessment Last Done: 03/22/21 06:33
[2021-03-22 00:41] LABS: Basophils # (auto) 0.01 K/uL (0-0.2); Basophils % (auto) 0.2 %; Eosinophils # (auto) 0.03 K/uL (0-0.5); Eosinophils % (auto) 0.6 %; Hematocrit (blood only) 38.4 % (37-47); Lymphocytes # (auto) 0.39 K/uL (1.2-3.4); Lymphocytes % (auto) 7.5 %; Mean Corpuscular Hemoglobin 27.4 pg (25-34); Mean Corpuscular Hgb Conc 33.9 g/dL (32-36); Mean Corpuscular Volume 80.8 fL (80-100); Mean Platelet Volume 11.4 fL (7.4-10.4); Monocytes # (auto) 0.29 K/uL (0.11-0.59); Monocytes % (auto) 5.6 %; Neutrophils # (auto) 4.49 K/uL (1.4-6.5); Neutrophils % (auto) 86.1 %; Platelet Count 136 K/uL (130-400); RDW Coefficient of Variation 12.3 % (11.5-14.5); RDW Standard Deviation 35.7 fL (36.4-46.3); Red Blood Count 4.75 M/uL (4.2-5.4); White Blood Count 5.21 K/uL (4.8-10.8)
[2021-03-22 00:50] LABS: Appearance Urine Clear (Clear); Bacteria Urine Automated Negative (Negative); Bilirubin Urine Negative (Negative); Blood Urine 1+ (Negative); Color Urine Yellow; Glucose Urine UA Negative (Negative); Ketones Urine Negative (Negative); Leukocyte Esterase Urine Negative (Negative); Nitrite Urine Negative (Negative); Protein Urine Negative (Negative); RBC Urine Automated 0-4 /hpf (0-4); Specific Gravity Urine 1.014 (1.000-1.030); Urobilinogen Urine Negative (Negative); pH Urine 7.5 (4.5-7.5)
[2021-03-22 01:06] LABS: Alanine Aminotransferase 15 U/L (12-78); Aspartate Aminotransferase 5 U/L (15-37); BUN Creatinine Ratio 8.8 (10-20); Blood Urea Nitrogen 7 mg/dl (7-18); Carbon Dioxide 27 mmol/L (21-32); Chloride 108 mmol/L (98-107); Creatinine Clr Calc Pharmacy 100.4 ml/min; Est GFR (African American) 112.7 ml/min; Est GFR (Non-African American) 97.3 ml/min; Glucose 94 mg/dl (70-99); Potassium 3.6 mmol/L (3.5-5.1); Sodium 139 mmol/L (136-145)
[2021-03-22 01:16] LABS: Alkaline Phosphatase 58 U/L (45-117); Bilirubin,Total 0.3 mg/dl (0.2-1); Troponin I < 0.015 ng/ml (0-0.045)
[2021-03-22 01:18] LABS: Pregnancy Test, Serum Negative (Negative)
[2021-03-22] MEDS ORDERED: KETOROLAC TROMETHAMINE 15 MG/ML VIAL IV STA (02:52)
[2021-03-22] MEDS ORDERED: ACETAMINOPHEN 325 MG TAB PO STA (02:52)
[2021-03-22] MEDS ORDERED: OPTIRAY 320 125ml IV ONE (04:31)
--- NOTE | 2021-03-22 06:13 | History & Physical Report ---
Date of Service March 22, 2021 Assessment & Plan (1) COVID-19: Plan: 25yo female with Covid-19 infection, persistent tachycardia despite 2L IVF. She is not hypoxic, no pain. H/H, electrolytes and TSH WNL. No PE on CTA. -Observation to medical with telemetry -Maintain isolation precautions for Covid -No indication for steroids, supplemental O2 at this time as patient is not hypoxic -Tylenol as needed for pain or fever -Monitor (2) Tachycardia: Plan: Etiology unclear - HR ranging 117 - 149 despite IVF administered in ER. As above, CTA is negative for PE. TSH, H/H, electrolytes WNL. ?hypersympathetic tone in setting of acute infection, ?anxiety Patient denies EtoH or substance use -Check Mg and replete as needed -Continue IVF -Monitor HR Plan: F/E/N - LR at 125mL/hr x 2 liters, monitor electrolytes and replete as needed, regular diet as tolerated Ppx - Lovenox 40 Code - Full Dispo - Observation to medical with telemetry. Anticipate discharge home later today pending improvement in HR History of Present Illness Chief Complaint: Covid - 19, tachycardia Primary Care Provider: RUBENS Benoit Nellie Whitt is a 25yo female with no significant past medical or surgical history presenting with several days of fatigue, lethargy, chills, sinus congestion. Patient lives with her fiance and their 6 young children most of whom are sick with cough, congestion and fever. She presented to the ER this evening with her youngest daughter who tested positive for RSV. Patient is not vaccinated against Covid Several of her children were exposed to Covid at school She denies fever, cough, SOB, abdominal pain, nausea, vomiting, diarrhea. Tachycardic in the ER - given IVF with minimal improvement Patient denies pain, anxiety, SOB. No additional complaints at this time. Allergies Allergy/AdvReac Type Severity Reaction Status Date / Time No Known Allergies Allergy NONE Verified 03/08/21 14:05 Home Medications Medication Instructions Recorded Confirmed Type fluticasone propionate 50 See Rx Instructions INTRANASAL 09/15/20 03/08/21 Rx mcg/actuation nasal DAILY #9.9 ml spray,suspension (Flonase Allergy Relief) Past Med/Surg History Medical History Back pain Chlamydia Gestational hypertension HSIL (high grade squamous intraepithelial lesion) on Pap smear of cervix Normal labor and delivery examination following vaginal delivery Sciatica URI (upper respiratory infection) Vaginitis Varicella vaccination Surgical History History of dental surgery S/P tonsillectomy Family History Grandmother (Maternal) Diabetes Kidney stones Grandmother (Maternal) Hypertension Grandmother (Paternal) Multiple sclerosis Denies family history of Ovarian cancer Prostate cancer Myocardial infarction Breast cancer Colorectal cancer Social History Smoking Status: Former smoker Second Hand Exposure: No; Hx Alcohol Use: No Hx Substance Use: No Preferred Language: Barbadian Communication Ability: Effective Sugar Controller Required: No Beliefs That Will Affect Care: None marital status: Single marital status details: dimitri Read ([phone] Current Living Situation: Family Current Living Situation Comment: lives with fowaldemar, son current occupation: [employer] Feels Safe at Home: Yes Assistive Devices: None Review of Systems Review of Systems: All systems reviewed & are unremarkable except as noted in HPI & below Physical Exam Physical Exam: General: patient resting comfortably, NAD, non-toxic in appearance, AA&O x 4 Skin: warm, dry, intact, no rashes or lesions HEENT: NC/AT, PERRL, EOMI, anicteric sclera, conjunctiva without injection, external ear normal to inspection and nontender, nares patent, moist mucus membranes, dentition intact, no oropharyngeal lesions, neck supple, trachea midline, no LAD, no thyromegaly, no JVD Heart: +S1/S2, regular, tachycardic, no m/r/g Lungs: equal air entry bilaterally, no rales/rhonchi/wheezes Abd: +BS, soft, NT/ND, no masses/organomegaly/ascites Ext: warm, 2+ pulses in UE/LE bilaterally, no clubbing/cyanosis or edema Neuro: nonfocal, patient AA&O x 4, speech intact, no facial droop, moving all extremities on command with equal strength 5/5 Results & Data Results & Data ([facility]) Vital Signs (Past 12 Hours) Vital Signs Temp Pulse Resp BP Pulse Ox 03/22/21 05:00 117 H 16 03/22/21 04:00 127 H 22 03/22/21 03:00 141 H 20 03/22/21 02:00 146 H 21 129/77 99 03/22/21 01:00 135 H 15 136/91 96 03/22/21 00:45 130 H 20 100 03/22/21 00:43 135 H 16 100 03/21/21 22:51 36.6 C 140 H 20 147/82 H 97 Laboratory Results Laboratory Results WBC 5.21 K/uL (4.8-10.8) 03/22/21 00:15 RBC 4.75 M/uL (4.2-5.4) 03/22/21 00:15 Hgb 13.0 g/dL (12.0-16.0) 03/22/21 00:15 Hct 38.4 % (37-47) 03/22/21 00:15 MCV 80.8 fL (80-100) 03/22/21 00:15 MCH 27.4 pg (25-34) 03/22/21 00:15 MCHC 33.9 g/dL (32-36) 03/22/21 00:15 RDW Std Deviation 35.7 fL (36.4-46.3) L 03/22/21 00:15 RDW Coeff of Selina 12.3 % (11.5-14.5) 03/22/21 00:15 Plt Count 136 K/uL (130-400) 03/22/21 00:15 MPV 11.4 fL (7.4-10.4) H 03/22/21 00:15 Immature Gran % (Auto) 0.0 % 03/22/21 00:15 Neut % (Auto) 86.1 % 03/22/21 00:15 Lymph % (Auto) 7.5 % 03/22/21 00:15 [place] % (Auto) 5.6 % 03/22/21 00:15 Eos % (Auto) 0.6 % 03/22/21 00:15 Baso % (Auto) 0.2 % 03/22/21 00:15 Neut # (Auto) 4.49 K/uL (1.4-6.5) 03/22/21 00:15 Lymph # (Auto) 0.39 K/uL (1.2-3.4) L 03/22/21 00:15 [place] # (Auto) 0.29 K/uL (0.11-0.59) 03/22/21 00:15 Eos # (Auto) 0.03 K/uL (0-0.5) 03/22/21 00:15 Baso # (Auto) 0.01 K/uL (0-0.2) 03/22/21 00:15 Immature Gran # (Auto) 0.00 K/uL (0.00-0.02) 03/22/21 00:15 Sodium 139 mmol/L (136-145) 03/22/21 00:15 Potassium 3.6 mmol/L (3.5-5.1) 03/22/21 00:15 Chloride 108 mmol/L (98-107) H 03/22/21 00:15 Carbon Dioxide 27 mmol/L (21-32) 03/22/21 00:15 Anion Gap 4.0 (3-11) 03/22/21 00:15 BUN 7 mg/dl (7-18) 03/22/21 00:15 Creatinine 0.84 mg/dl (0.6-1.2) 03/22/21 00:15 Est Cr Clr Drug Dosing 100.4 ml/min 03/22/21 00:15 Est GFR ( Amer) 112.7 ml/min 03/22/21 00:15 Est GFR (Non-Af Amer) 97.3 ml/min 03/22/21 00:15 BUN/Creatinine Ratio 8.8 (10-20) L 03/22/21 00:15 Glucose 94 mg/dl (70-99) 03/22/21 00:15 Calcium 9.0 mg/dl (8.5-10.1) 03/22/21 00:15 Total Bilirubin 0.3 mg/dl (0.2-1) 03/22/21 00:15 AST 5 U/L (15-37) L 03/22/21 00:15 ALT 15 U/L (12-78) 03/22/21 00:15 Alkaline Phosphatase 58 U/L (45-117) 03/22/21 00:15 Troponin I < 0.015 ng/ml (0-0.045) 03/22/21 00:15 Total Protein 8.0 gm/dl (6.4-8.2) 03/22/21 00:15 Albumin 4.0 gm/dl (3.4-5.0) 03/22/21 00:15 Globulin 4.0 gm/dl (2.5-4.0) 03/22/21 00:15 Albumin/Globulin Ratio 1.0 (0.9-2) 03/22/21 00:15 TSH 1.330 uIu/ml (0.300-4.500) 03/22/21 00:15 HCG, Qual Negative (Negative) 03/22/21 00:15 Urine Color Yellow 03/22/21 00:15 Urine Appearance Clear (Clear) 03/22/21 00:15 Urine pH 7.5 (4.5-7.5) 03/22/21 00:15 Ur Specific [place] 1.014 (1.000-1.030) 03/22/21 00:15 Urine Protein Negative (Negative) 03/22/21 00:15 Urine Glucose (UA) Negative (Negative) 03/22/21 00:15 Urine Ketones Negative (Negative) 03/22/21 00:15 Urine Blood 1+ (Negative) H 03/22/21 00:15 Urine Nitrite Negative (Negative) 03/22/21 00:15 Urine Bilirubin Negative (Negative) 03/22/21 00:15 Urine Urobilinogen Negative (Negative) 03/22/21 00:15 Ur Leukocyte Esterase Negative (Negative) 03/22/21 00:15 Urine WBC (Auto) 1-5 /hpf (0-5) 03/22/21 00:15 Urine RBC (Auto) 0-4 /hpf (0-4) 03/22/21 00:15 U Hyaline Cast (Auto) 1-5 /lpf (0-5) 03/22/21 00:15 U Epithel Cells (Auto) 10-20 /lpf (0-5) H 03/22/21 00:15 Urine Bacteria (Auto) Negative (Negative) 03/22/21 00:15 COVID-19 Eval Order Covid19 at [facility] 03/22/21 00:52 SARS-CoV-2 (PCR) POSITIVE (Negative) A* 03/22/21 00:52 Diagnostic Findings CTA Chest - Per STAT rad - NO PE or aortic abnormality. THe lungs are well inflated and clear. No infiltrate or consolidation. NO pneumothorax or pleural effusion. Skeletal structures appear unremarkable. Limited images of the upper abdomen appear unremarkable. ECG Additional Comments: EKG wtih ST at 131, normal axis, DZ=966, QRS=80, APi=723, no acute ischemic chnanges Code Status & VTE Plan VTE Prophylaxis Plan VTE Prophylaxis will be ordered: Yes PG Care Time/CCT Total # of Minutes Spent Total Time Spent with Patient: Total time spent is greater than 50% in coordination of care (as documented) at patient's floor/unit and/or counseling patient: Coding Level of Care Code INT OBSERVATION CARE 50M LVL 2 Diagnoses COVID-19 U07.1 Tachycardia R00.0
--- NOTE | 2021-03-22 07:33 | CT Scan Report ---
CHEST CTA for PULMONARY ARTERIES CT DOSE: 227.84 mGy.cm HISTORY: tachycardia, covid 19 TECHNIQUE: Multiaxial CT images of the chest were performed following the intravenous administration of contrast to evaluate the pulmonary arteries. Maximal intensity projection images were also obtaine d. A dose lowering technique was utilized adhering to the principles of ALARA. COMPARISON STUDY: None. FINDINGS: The spleen is likely mildly enlarged. This is only partially imaged on this study. The visu alized liver and adrenal glands are unremarkable. The heart is normal in size. No pleural or pericard ial effusions. No evidence for an aortic dissection or pulmonary embolus. No mediastinal or hilar lym phadenopathy. Normal esophagus. No fractures within the visualized osseous structures. No focal lung consolidations to suggest pneumonia. IMPRESSION: 1. No evidence for pulmonary embolus. 2. No focal lung consolidations to suggest pneumonia. 3. The spleen is only partially imaged on this study but appears mildly enlarged. ACT 112: Negative or not required by law. Electronically signed by: Tyrel Morse M.D. 03/22/2021 7:32 AM
[2021-03-22] MEDS: LACTATED RINGER'S 1,000 ML IV SCH ×2 (07:53→17:03)
[2021-03-22] MEDS: ENOXAPARIN INJ 40 MG/0.4 ML SYR SQ SCH (07:53)
[2021-03-22] MEDS ORDERED: LACTATED RINGER'S 500 ML IV ONE (08:48)
[2021-03-22 11:15] LABS: Amphetamines+Metham, Urine Neg (Neg); Barbiturates, Urine Neg (Neg); Benzodiazepine, Urine Neg (Neg); Cocaine, Urine Neg (Neg); MDMA (Ecstacy), Urine Neg (Neg); Methadone, Urine Neg (Neg); Opiate, Urine Neg (Neg); Phencyclidine, Urine Neg (Neg)
[2021-03-22] MEDS: ACETAMINOPHEN 325 MG TAB PO PRN (16:00)
[2021-03-22] MEDS ORDERED: METOPROLOL TARTRATE 1 MG/ML VIAL IV PRN (18:14)
--- NOTE | 2021-03-22 18:19 | Hospitalist Progress Note ---
Date of Service March 22, 2021 Assessment & Plan (1) COVID-19: Plan: 25yo female with Covid-19 infection, persistent tachycardia despite 2.5 L IVF. She is not hypoxic, no pain. H/H, electrolytes and TSH WNL. No PE on CTA. -Observation to medical with telemetry -Maintain isolation precautions for Covid -No indication for steroids, supplemental O2 at this time as patient is not hypoxic -Tylenol as needed for pain or fever -Monitor (2) Tachycardia: Plan: Etiology unclear - HR ranging 117 - 149 despite IVF administered in ER. As above, CTA is negative for PE. TSH, H/H, electrolytes WNL. ?hypersympathetic tone in setting of acute infection, ?anxiety Patient denies EtoH or substance use tox screen repeat troponin is negative esr normal echo ordered repeat labs in am offer metoprolol * pt states that she had persistent tachycardia with a previous Plan: Ppx - Lovenox 40 Code - Full Dispo - Observation to medical with telemetry. Anticipate discharge home later today pending improvement in HR Admission and Anticipated Discharge Date Admission Date: March 22, 2021 Physical Exam Physical Exam: pt is without chest pain or awareness of tachycardia car is tachy, no murmur no rub lungs are clear Results & Data Results & Data ([facility]) Vital Signs (Past 12 Hours) Vital Signs Temp Pulse Resp BP Pulse Ox 03/22/21 16:00 100.6 F H 127 H 20 103/70 100 03/22/21 08:00 99.3 F 117 H 17 111/62 100 03/22/21 07:57 99.3 F 116 H 17 111/66 100 03/22/21 06:36 107 H 18 119/66 98 PG Care Time/CCT Total # of Minutes Spent Total Time Spent with Patient: Total time spent is greater than 50% in coordination of care (as documented) at patient's floor/unit and/or counseling patient: Coding Level of Care Code None Diagnoses COVID-19 U07.1 Tachycardia R00.0
[2021-03-23] MEDS: ENOXAPARIN INJ 40 MG/0.4 ML SYR SQ SCH (05:46)
[2021-03-23 07:09] LABS: BUN Creatinine Ratio 7.2 (10-20); Blood Urea Nitrogen 6 mg/dl (7-18); C Reactive Protein 4.14 mg/dl (0-0.29); Calcium 8.2 mg/dl (8.5-10.1); Carbon Dioxide 23 mmol/L (21-32); Chloride 112 mmol/L (98-107); Creatinine Clr Calc Pharmacy 100.4 ml/min; Est GFR (African American) 112.7 ml/min; Est GFR (Non-African American) 97.3 ml/min; Glucose 114 mg/dl (70-99); Potassium 3.3 mmol/L (3.5-5.1); Sodium 140 mmol/L (136-145)
[2021-03-23 07:14] LABS: Creatine Kinase 59 U/L (26-192); Troponin I < 0.015 ng/ml (0-0.045)
[2021-03-23] MEDS ORDERED: POTASSIUM CHLORIDE CRTAB 20 MEQ TABCR PO STA (08:12)
[2021-03-23] MEDS: ACETAMINOPHEN 325 MG TAB PO PRN (08:31)
--- NOTE | 2021-03-23 12:05 | Electrocardiogram Report ---
Test Reason : Blood Pressure : / mmHG Vent. Rate : 131 BPM Atrial Rate : 131 BPM P-R Int : 126 ms QRS Dur : 080 ms QT Int : 296 ms P-R-T Axes : 061 045 006 degrees QTc Int : 437 ms Sinus tachycardia Non-specific change in ST segment in Inferior leads Abnormal ECG No previous ECGs available Confirmed by Micheal Hollingsworth ([id number]) on 03/23/2021 12:04:25 PM Referred By: REFERRED SELF Confirmed By:Micheal Hollingsworth
--- NOTE | 2021-03-23 12:51 | XCELERA ---
[id number]
--- NOTE | 2021-03-23 19:35 | Discharge Summary ---
Date of Service March 23, 2021 Admission HPI Per Admitting Provider Nellie Whitt is a 25yo female with no significant past medical or surgical history presenting with several days of fatigue, lethargy, chills, sinus congestion. Patient lives with her fiance and their 6 young children most of whom are sick with cough, congestion and fever. She presented to the ER this evening with her youngest daughter who tested positive for RSV. Patient is not vaccinated against Covid Several of her children were exposed to Covid at school She denies fever, cough, SOB, abdominal pain, nausea, vomiting, diarrhea. Tachycardic in the ER - given IVF with minimal improvement Patient denies pain, anxiety, SOB. No additional complaints at this time. Principal Diagnosis tachycardia covid infection Discharge Exam The patient appeared well Vital signs as documented. Lungs are clear to auscultation and appear unlabored Cardiac exam, Rhythm is regular.. No murmurs, rubs or gallops. Abdominal exam reveals normal bowel sounds, soft non tender, no masses Extremities are nonedematous and both pedal pulses are normal. Neurologic exam is alert and oriented, no focal loss of strength or sensation Skin is without bruises or rashes Psychologically is without concerns for anxiety or depression. Discharge Data Allergies Allergy/AdvReac Type Severity Reaction Status Date / Time No Known Allergies Allergy NONE Verified 03/08/21 14:05 Consultations 03/22/21 05:54 ED Decision to Admit Stat Ordered Studies 03/22/21 04:06 CT angio chest PE protocol Urgent Hospital Course (1) COVID-19: 25yo female with Covid-19 infection, persistent tachycardia despite 2.5 L IVF. She remains with hypoxia she was given home Covid isolation instructions both verbally and printed (2) Tachycardia: Improved with persistent hydration previous CTA and serologies were n egative for etiology. * pt states that she had persistent tachycardia with a previous Total Time Total Time Spent Total Time Spent (In Minutes): It required less than 30 minutes to prepare this patient for discharge Discharge Plan Discharge Items Patient Disposition: Home - Self-Care Reason For Visit: COVID-19, TACHYCARDIA Discharge Diagnosis: fast heart rate covid infection Condition on Discharge: Good Activity: Resume your previous activity Non-emergency contact: Primary Care Provider Call non-emergency contact if: you have any medication questions, your symptoms worsen and you have a fever Follow-up/Referrals: Vikki Rodriguez CRNP [Primary Care Provider] - 03/30/21 11:00 am Diet: Regular Diet Comment: limit caffiene and follow up with primary care Addtl Attending Provider Instructions: Home Isolation COVID-19 Instructions you should be on home isolation until 04/02/21, that would be wearing a mask around people who have not had covid infection and limiting or avoiding exposure to public, this may inlcude wearing a mask in your home around family The following information about Home Isolation is from the CDC Website: https://www.cdc.gov/coronavirus/2019-ncov/hcp/qvjskxmz-cehlgsc-xgfspe.html Stay home except to get medical care People who are mildly ill with COVID-19 are able to isolate at home during their illness. You should restrict activities outside your home, except for getting medical care. Do not go to work, school, or public areas. Avoid using public transportation, ride-sharing, or taxis. Separate yourself from other people and animals in your home People: As much as possible, you should stay in a specific room and away from other people in your home. Also, you should use a separate bathroom, if available. Animals: You should restrict contact with pets and other animals while you are sick with COVID-19, just like you would around other people. Although there have not been reports of pets or other animals becoming sick with COVID-19, it is still recommended that people sick with COVID-19 limit contact with animals until more information is known about the virus. When possible, have another member of your household care for your animals while you are sick. If you are sick with COVID-19, avoid contact with your pet, including petting, snuggling, being kissed or licked, and sharing food. If you must care for your pet or be around animals while you are sick, wash your hands before and after you interact with pets and wear a face mask. Call ahead before visiting your doctor If you have a medical appointment, call the healthcare provider and tell them that you have or may have COVID-19. This will help the healthcare providers office take steps to keep other people from getting infected or exposed. Wear a face mask You should wear a face mask when you are around other people (e.g., sharing a room or vehicle) or pets and before you enter a healthcare providers office. If you are not able to wear a face mask (for example, because it causes trouble breathing), then people who live with you should not stay in the same room with you, or they should wear a face mask if they enter your room. Cover your coughs and sneezes Cover your mouth and nose with a tissue when you cough or sneeze. Throw used tissues in a lined trash can. Immediately wash your hands with soap and water for at least 20 seconds or, if soap and water are not available, clean your hands with an alcohol-based hand automotive lube technician that contains at least 60% alcohol. Clean your hands often Wash your hands often with soap and water for at least 20 seconds, especially after blowing your nose, coughing, or sneezing; going to the bathroom; and before eating or preparing food. If soap and water are not readily available, use an alcohol-based hand automotive lube technician with at least 60% alcohol, covering all surfaces of your hands and rubbing them together until they feel dry. Soap and water are the best option if hands are visibly dirty. Avoid touching your eyes, nose, and mouth with unwashed hands. Avoid sharing personal household items You should not share dishes, drinking glasses, cups, eating utensils, towels, or bedding with other people or pets in your home. After using these items, they should be washed thoroughly with soap and water. Clean all high-touch surfaces everyday High touch surfaces include counters, tabletops, doorknobs, bathroom fixtures, toilets, phones, keyboards, tablets, and bedside tables. Also, clean any surfaces that may have blood, stool, or body fluids on them. Use a household cleaning spray or wipe, according to the label instructions. Labels contain instructions for safe and effective use of the cleaning product including precautions you should take when applying the product, such as wearing gloves and making sure you have good ventilation during use of the product. Monitor your symptoms Seek prompt medical attention if your illness is worsening (e.g., difficulty breathing).Beforeseeking care, call your healthcare provider and tell them that you have, or are being evaluated for, COVID-19. Put on a face mask before you enter the facility. These steps will help the healthcare providers office to keep other people in the office or waiting room from getting infected or exposed. Ask your healthcare provider to call the local or state health department. Persons who are placed under active monitoring or facilitated self- monitoring should follow instructions provided by their local health department or occupational health professionals, as appropriate. When working with your local health department check their available hours. If you have a medical emergency and need to call 911, notify the dispatch personnel that you have, or are being evaluated for COVID-19. If possible, put on a face mask before emergency medical services arrive. Discontinuing home isolation Patients with confirmed COVID-19 should remain under home isolation precautions until the risk of secondary transmission to others is thought to be low. The decision to discontinue home isolation precautions should be made on a [id number]-ronx basis, in consultation with healthcare providers and [facility] and [facility] health departments. Addtl Swimming Coach Or Instructor Provider Instructions: the echo of your heart was normal the CT scan of your chest did not show any covid affects on your lungs Pending Studies at Discharge: Yes Stand-Alone Forms: Five minutes, Smoking Cessation Medications and DC Order Prescriptions: No Action No Known Home Medications RF: 0 Discharge Orders: Discharge Order (Routine); Ordered 03/23/21 Ordered By: Dimitrios Mehta Admission Data Admit Date/Time: 03/22/21 06:03 Attending Provider: Dimitrios Mehta Admit Provider: Shruti Torres Primary Care Provider: Vikki Rodriguez. Other Providers: Shruti Torres Other Interventions: Discharge Summary Assessment (RN) Last Done: 03/23/21 13:56 Coding Level of Care Code D/C DAY MANAGEMENT <30 MINS Diagnoses COVID-19 U07.1 Tachycardia R00.0
== END 2021-03-23 14:45 | disposition home or self-care (01) ==
LOC: ED 22:47 → EDINP 22:47 → SUATTDRO 03-22 06:03 → 2S 03-22 20:50